=== PATIENT | female | born 1935 | race Caucasian/White ===

== ENCOUNTER → 2017-11-25 | Outpatient (CLI) | payer MEDICARE, OTHER ==
[~2017-11-25] MED LIST: BUME2TAB PO; CANA1TAB8 PO; COMMODE 3-IN-11 MIS; ECASA81 PO; FAMO20TA2 PO; LISI-519 PO; METO1TAB9 PO; OXYC1TAB63 PO; WALKER WHEELS/F1 MIS; ZOCO80TA PO
[2017-11-25 10:17] LABS: AUTOMATED NEUTROPHIL # 4.4 TH/MM3 (1.8-7.7); BASOPHIL # 0.1 TH/MM3 (0-0.2); BASOPHIL % 0.8 % (0.0-2.0); EOSINOPHIL # 0.2 TH/MM3 (0-0.4); EOSINOPHIL % 2.7 % (0.0-4.0); HEMATOCRIT 44.8 % (35.0-46.0); HEMOGLOBIN 14.8 GM/DL (11.6-15.3); LYMPH % 36.5 % (9.0-44.0); LYMPHOCYTE # 3.1 TH/MM3 (1.0-4.8); MEAN CELL VOLUME 89.3 FL (80.0-100.0); MEAN CORPUSCULAR HEMOGLOBIN 29.5 PG (27.0-34.0); MEAN CORPUSCULAR HGB CONC 33.1 % (32.0-36.0); MEAN PLATELET VOLUME 7.4 FL (7.0-11.0); MONO % 7.3 % (0.0-8.0); MONOCYTE # 0.6 TH/MM3 (0-0.9); NEUT % 52.7 % (16.0-70.0); PLATELET COUNT 240 TH/MM3 (150-450); RED BLOOD COUNT 5.02 MIL/MM3 (4.00-5.30); RED CELL DISTRIBUTION WIDTH 13.8 % (11.6-17.2); WHITE BLOOD COUNT 8.4 TH/MM3 (4.0-11.0)
[2017-11-25 10:19] LABS: BILIRUBIN, URINE NEG (NEG); BLOOD, URINE NEG (NEG); GLUCOSE,URINE 1000 mg/dL (NEG); HYALINE CAST, URINE 2 /lpf (RARE); KETONE, URINE NEG (NEG); NITRITE,URINE NEG (NEG); SQUAMOUS EPITHELIAL CELL URINE 1 /hpf (0-5); URINE COLOR LIGHT-YELLOW (YELLW/STRAW); URINE LEUKOCYTE ESTERASE NEG (NEG)
[2017-11-25 10:32] LABS: PROTHROMBIN TIME - PATIENT 10.1 SEC (9.8-11.6)
[2017-11-25 10:52] LABS: BICARBONATE 28.2 MEQ/L (21.0-32.0); CALCIUM 9.3 MG/DL (8.5-10.1); CREATININE 1.14 MG/DL (0.50-1.00)
--- NOTE | 2017-11-25 14:58 | EKG ---
Date Performed: 11/25/2017 Time Performed: 09:07:09 PTAGE: 82 years EKG: Sinus rhythm NORMAL ECG NO PREVIOUS TRACING DOCTOR: Maximino Lua Interpretating Date/Time 11/25/2017 14:53:44
== END ==
LOC: EDUNIT# 08:00 → CPRE 08:18
PROVIDERS: ATTEND Orthopaedic Surgery Orthopaedic Surgery of the Spine
DX: Z01.810 Encounter for preprocedural cardiovascular examination (principal); Z01.812 Encounter for preprocedural laboratory examination; M17.12 Unilateral primary osteoarthritis, left knee
CPT/HCPCS: 36415; 80048; 81001; 85025; 85610; 85730; 93005

== ENCOUNTER 2017-12-06 07:20 | Inpatient (IN) | payer MEDICARE, OTHER ==
[~2017-12-06] VITALS: Ht 157.5 cm; Wt 85.9 kg
[~2017-12-06 07:20] MED LIST changes: -COMMODE 3-IN-11 MIS; -ECASA81 PO; -OXYC1TAB63 PO; -WALKER WHEELS/F1 MIS
[2017-12-06] MEDS ORDERED: ceFAZolin 2 GM PREMIX 50 ML IV SCH (07:45)
[2017-12-06] MEDS ORDERED: METOPROLOL TARTRATE 25 MG TAB PO PRN (07:45)
[2017-12-06] MEDS ORDERED: EXPAREL PERI-ARTICULAR INJECTION (TOTAL VOL. 60 ML) P-ARTICULR SCH ×2 (07:45)
[2017-12-06] MEDS ORDERED: TRANEXAMIC ACID IV SCH (07:45)
[2017-12-06] MEDS ORDERED: SODIUM CHLORIDE 0.9% IV SCH (07:45)
[2017-12-06] MEDS ORDERED: POVIDONE IODINE 5% (ANTISEPSIS KIT) 4 APPLICATIONS EACH NARE PRN (07:45)
[2017-12-06] MEDS ORDERED: CHLORHEXIDINE GLUCONATE 4% SOLN 120 ML BTL TOPICAL SCH (07:45)
[2017-12-06] MEDS ORDERED: CHLORHEXIDINE GLUCONATE 2 % 1 PACK (2 CLOTHS) TOPICAL PRN (07:45)
[2017-12-06] MEDS ORDERED: SODIUM CHLORID 0.9% 500 ML IV PRN (07:45)
[2017-12-06] MEDS ORDERED: VANCOMYCIN 1 GM/200 ML PREMIX IV SCH (08:00)
[2017-12-06] MEDS ORDERED: BUPIVACAINE HCL PF 0.5% 30 ML VIAL NERV BLOCK ONE (08:15)
[2017-12-06] MEDS: LACTATED RINGER'S 1000 ML INJ 1,000 ML IV ONE ×2 (08:15→09:19)
[2017-12-06] MEDS: LACTATED RINGER'S 1000 ML IV PRN ×2 (08:15→09:27)
[2017-12-06] MEDS ORDERED: MIDAZOLAM HCL 2 MG/2 ML VIAL IV ONE (08:15)
[2017-12-06] MEDS ORDERED: MIDAZOLAM HCL 5 MG/ML VIAL (1 ML) IV ONE (08:15)
[2017-12-06] MEDS ORDERED: ROPIVACAINE 0.5% PF INJ 30 ML VIAL NERV BLOCK ONE (08:15)
[2017-12-06 08:20] VITALS: PULSE 65
[2017-12-06] MEDS ORDERED: ECASA81 PO ×3 (08:20→13:05)
[2017-12-06] MEDS ORDERED: ROPIVACAINE 0.5% PF INJ 30 ML VIAL ONE (08:46)
[2017-12-06] MEDS ORDERED: MIDAZOLAM HCL 2 MG/2 ML VIAL ONE (08:46)
[2017-12-06] MEDS ORDERED: KETAMINE HCL 50 MG/5 ML SYRINGE ONE (09:53)
[2017-12-06] MEDS ORDERED: ACETAMINOPHEN 1000 MG/100 ML 100 ML IV ONE (09:53)
[2017-12-06] MEDS ORDERED: BUPIVACAINE/EPINEPHRINE 0.5% PF 30 ML VIAL ONE (10:18)
[2017-12-06] MEDS ORDERED: GENTAMICIN SULFATE 80 MG/2 ML VIAL ONE (10:19)
[2017-12-06] MEDS ORDERED: SODIUM CHLOR 0.9% IV ONE (11:38)
[2017-12-06] MEDS ORDERED: PROPOFOL 200 MG/20 ML AMP IV ONE (12:00)
[2017-12-06] MEDS ORDERED: LACTATED RINGER'S 1000 ML INJ 1,000 ML IV ONE (12:00)
[2017-12-06] MEDS ORDERED: LIDOCAINE HCL 1% PF 5 ML SYRINGE OTHER ONE (12:00)
[2017-12-06] MEDS ORDERED: DEXAMETHASONE SOD PHOS 4 MG/ML VIAL IV ONE (12:00)
[2017-12-06] MEDS ORDERED: LABETALOL HCL 100 MG/20 ML VIAL IV ONE (12:00)
[2017-12-06] MEDS ORDERED: ePHEDrine/NS 25 MG/5 ML SYRINGE IV ONE (12:00)
[2017-12-06] MEDS ORDERED: ONDANSETRON HCL 4 MG/2 ML VIAL IV ONE (12:00)
[2017-12-06] MEDS ORDERED: ALUMINUM/MAGNESIUM/SIMETH 30 ML CUP PO PRN (12:45)
[2017-12-06] MEDS ORDERED: TEMAZEPAM 15 MG CAP PO PRN (12:45)
[2017-12-06] MEDS ORDERED: ONDANSETRON HCL 4 MG/2 ML VIAL IVP PRN (12:45)
[2017-12-06] MEDS ORDERED: diphenhydrAMINE HCL 25 MG CAP PO PRN (12:45)
[2017-12-06] MEDS ORDERED: MORPHINE SULFATE 8 MG/ML INJ IM PRN (12:45)
[2017-12-06] MEDS ORDERED: Post-op Orders (for Pharmacy) XX ONE (12:45)
[2017-12-06] MEDS ORDERED: NALOXONE HCL 0.4 MG/ML AMP IV PUSH PRN (12:45)
--- NOTE | 2017-12-06 12:46 | PD.OP ---
cc: Scott Morfin. Operative Report Date of Surgery: Dec 06, 2017 Preoperative Diagnosis: Osteoarthritis left knee Postoperative Diagnosis: Same. Macerated torn lateral meniscus. Fatigue fracture medial tibial plateau Procedure: Left total knee replacement arthroplasty Anesthesia: General with regional for pain control Surgeon: Scott Morfin Hands Parter(s): HAMLET Gomez Operation and Findings: EBL: 50 cc INDICATION: This patient presents with long-standing arthritis of the knee. The patient had a fall sustaining an injury to the left knee. Her symptoms escalated significantly. An MRI scan is consistent with a torn lateral meniscus and arthritis predominantly of the medial compartment. Attachment record documents conservative measures. The patient now presents for surgical treatment. NOTE: Yazmin Gomez PA-C was present for the entire surgical procedure as my market research assistant. In my medical opinion her skill and care was necessary for proper management of this patient. TOURNIQUET TIME: 60 minutes COMPANY: [employer] FEMUR: Size 5, posterior stabilized, left TIBIA: Size 5, fixed-bearing PATELLA: 32 mm POLYETHYLENE INSERT: Posterior stabilized, 10 mm PROCEDURE: This patient was brought the operating room and anesthetized in the supine position. The patient was positioned supine on the table. The tourniquet was placed about the thigh, and the leg was scrubbed with alcohol followed by Hibiclens followed by ChloraPrep and draped sterilely. A timeout was done, and antibiotics were given. After exsanguination the tourniquet was inflated to 250 mmHg. An anterior incision was made and a median parapatellar arthrotomy was performed. The patella was released laterally and subluxed allowing freehand cut of the patella which was then sized. A metal cap was placed over the exposed patellar surface for protection. A pilot steam yacht hole was placed in the distal femur allowing a 6 valgus cut removing 10 mm from the distal femur. Anterior posterior and chamfer cuts were made. The posterior stabilize osteotomy was made. The attention was directed to the tibia. Retractors were positioned. There was a significantly torn lateral meniscus. There appeared to be a small fatigue fracture along the medial tibial plateau which had partially healed. The external alignment guide was used allowing the lateral tibia to be used as referencing guide and cut utilizing an oscillating saw taking care to avoid any injury to the surrounding soft tissues. This was sized properly. Trial reduction showed that the insert fit nicely. The patient had range of motion extension 0 flexion 125 . A medial release was not necessary. The bony surfaces prepared. On the back table 2 packets of methylmethacrylate were mixed. The components were cemented. Excess cement was removed. The tourniquet let down and hemostasis was controlled. The final plastic insert was inserted. Range of motion was the same as previously noted. A drain was brought through a separate stab incision. The arthrotomy was repaired with interrupted #1 Vicryl suture, subcutaneous tissue 2-0 Vicryl suture and skin with metallic yvon A sterile dressing was applied. Sponge counts, needle counts and instrument counts were all correct. The patient tolerated procedure well and was taken to recovery in satisfactory condition. FINDINGS: There was evidence of significant arthritis involving the medial compartment which was also noted to have an insufficiency type fracture involving the medial tibial plateau just medial to the weightbearing portion. There was any severely macerated and torn lateral meniscus contributing to joint mechanical symptomatology. The final solution appeared to be excellent. There was no complication that was appreciated Scott Morfin MD Dec 06, 2017 12:46
[2017-12-06] MEDS ORDERED: OXYC1TAB63 PO (13:05)
--- NOTE | 2017-12-06 13:08 | HHI.FF ---
Face to Face Verification Diagnosis: (1) Primary localized osteoarthritis of left knee Physical Therapy Gait training Knee: Total knee, Protocol: Left, Full weight bearing Canvas Knee Splint: Other (At night for 4 weeks) Nursing RN: 3 days/week x 2 weeks Nursing: Other Dressing Changes: Do not change dressing I have seen patient Vanda Sultana on 12/06/17. My clinical findings support the need for the requested home health care services because: Limited ability to care for self High risk of falls I certify that my clinical findings support that this patient is homebound because: Unsteady gait/balance Scott Morfin MD Dec 06, 2017 13:08
[2017-12-06] MEDS ORDERED: MORPHINE SULFATE 4 MG/ML INJ ONE (13:22)
--- NOTE | 2017-12-06 13:40 | RADRPT ---
EXAM DATE: 12/06/2017 1:35 PM EDT AGE/SEX: 82 years / Female INDICATIONS: Post op left total knee. CLINICAL DATA: This is the patient's initial encounter. Patient reports that signs and symptoms have been present for 1 day and indicates a pain score of Nonresponsive. MEDICAL/SURGICAL HISTORY: Non-responsive. Non-responsive. COMPARISON: No prior exams available for comparison. FINDINGS: Post surgical changes are noted following left knee replacement. Prosthetic components are well seate d and in satisfactory alignment. There are no acute bony abnormalities. CONCLUSION: Satisfactory postoperative appearance of the left knee following replacement. Electronically signed by: Husam Estrada MD 12/06/2017 1:38 PM EDT
[2017-12-06] MEDS ORDERED: *morphine SULFATE 4 MG/ML PERIprocedure ONLY ONE ×3 (13:53→14:57)
[2017-12-06] MEDS ORDERED: ASPIRIN EC 81 MG TABEC PO ONE (14:30)
[2017-12-06] MEDS: LACTATED RINGER'S 1000 ML INJ 1,000 ML IV SCH (14:33)
[2017-12-06] MEDS ORDERED: DO NOT ADM ANY ANTICOAGULANT DRUGS PRN (14:45)
[2017-12-06 16:00] VITALS: BP 145/70; PULSE 69; RESP 19; TEMP 98.3; O2SAT 100
[2017-12-06 16:58] VITALS: O2SAT 97
[2017-12-06] MEDS: oxyCODONE/ACETAMINOPHEN 5 MG/325 MG TAB PO PRN ×2 (17:22→22:04)
[2017-12-06 19:30] VITALS: BP 171/73; PULSE 77; RESP 18; TEMP 97.8; O2SAT 97
[2017-12-06 20:20] VITALS: O2SAT 97
[2017-12-06] MEDS ORDERED: CANAGLIFLOZIN METFORMIN PO SCH (21:00)
[2017-12-06] MEDS ORDERED: INVOKAMET PO SCH (21:00)
[2017-12-06] MEDS: FAMOTIDINE 20 MG TAB PO SCH (22:00)
[2017-12-06] MEDS: ATORVASTATIN 40 MG TAB PO SCH (22:02)
[2017-12-06] MEDS: LISINOPRIL 5 MG TAB PO SCH (22:02)
[2017-12-06] MEDS: BUMETANIDE 1 MG TAB PO SCH (22:02)
[2017-12-06] MEDS: METOPROLOL SUCCINATE 50 MG EXTENDED RELEASE TAB PO SCH (22:03)
[2017-12-06] MEDS: ASPIRIN EC 81 MG TABEC PO SCH (22:03)
[2017-12-06 23:50] VITALS: BP 150/65; PULSE 77; RESP 17; TEMP 98; O2SAT 96
[2017-12-07] MEDS: LACTATED RINGER'S 1000 ML INJ 1,000 ML IV SCH ×2 (01:11→13:41)
[2017-12-07 04:25] VITALS: BP 115/56; PULSE 59; RESP 16; TEMP 98; O2SAT 98
[2017-12-07 05:52] LABS: HEMATOCRIT 35.6 % (35.0-46.0); HEMOGLOBIN 12.1 GM/DL (11.6-15.3)
[2017-12-07] MEDS: oxyCODONE/ACETAMINOPHEN 5 MG/325 MG TAB PO PRN ×3 (07:53→20:56)
[2017-12-07] MEDS: ASPIRIN EC 81 MG TABEC PO SCH ×2 (07:53→20:56)
[2017-12-07 08:00] VITALS: BP 132/62; PULSE 62; RESP 18; TEMP 98; O2SAT 100
[2017-12-07 10:30] VITALS: O2SAT 95
[2017-12-07 12:00] VITALS: BP 99/54; PULSE 66; RESP 19; TEMP 98.1; O2SAT 95
--- NOTE | 2017-12-07 12:56 | PD.ORT.PN ---
Subjective Subjective Remarks Doing well with moderate pain left knee. NO new leg pain. Block wore off and leg aches to lower thigh. Appetite improving. urinating. No concerns otherwise. Is considering discharge to rehab as she does not have help at home. Objective Vitals Vital Signs Date Time Temp Pulse Resp B/P (MAP) Pulse Ox O2 Delivery O2 Flow Rate FiO2 12/07/17 10:24 18 12/07/17 08:00 98.0 62 18 132/62 (85) 100 12/07/17 04:25 98.0 59 16 115/56 (75) 98 12/06/17 23:50 98.0 77 17 150/65 (93) 96 12/06/17 20:20 97 Nasal Cannula 2.00 12/06/17 19:30 97.8 77 18 171/73 (105) 97 12/06/17 16:58 97 Nasal Cannula 2.00 12/06/17 16:00 98.3 69 19 145/70 (95) 100 12/06/17 15:05 98.0 75 15 149/70 (96) 99 Nasal Cannula 3 12/06/17 14:45 77 15 150/70 (96) 99 Nasal Cannula 3 12/06/17 14:15 71 15 160/77 (104) 99 Nasal Cannula 3 12/06/17 14:00 75 15 168/79 (108) 99 Nasal Cannula 3 12/06/17 13:45 72 17 164/71 (102) 99 Nasal Cannula 3 12/06/17 13:30 74 15 170/83 (112) 99 Nasal Cannula 3 12/06/17 13:15 75 14 168/79 (108) 100 Nasal Cannula 3 12/06/17 13:07 96.0 77 14 180/88 (118) 99 Nasal Cannula 3 I/O 12/06/17 12/06/17 12/06/17 12/07/17 12/07/17 12/07/17 07:00 15:00 23:00 07:00 15:00 23:00 Intake Total 1700 ml 415 ml 1382 ml Output Total 250 ml 0 ml Balance 1450 ml 415 ml 1382 ml Intake Oral 240 ml 480 ml IV Total 1700 ml 175 ml 902 ml Output Urine Total 200 ml 0 ml Estimated Blood Loss 50 ml # Voids 2 5 # Bowel Movements 0 Result Diagram: 12/07/17 0415 Objective Remarks Sitting up in chair Eating breakfast Family member at bedside Left LE Knee dressing c/d/i, mild SS drainage, mild swelling and warmth, no erythema +motor at distal, +sens, +nvi 1+ pedal edema, Neg homans Assessment & Plan Ortho Post Op Day #: 1 Problem List: Assessment and Plan pod#1 s/p L TKA Pain moderately controlled. Appears ortho stable. PT - WBAT LLE. TKA procotol CKS when in bed FERNANDO hose both legs. IS encouraged. Ice left knee bid. PO pain meds as needed. ASA 81mg bid Hold dressing changes unless saturated. D/C planning, likely rehab tuesday. Yumiko Hernandez Dec 07, 2017 12:56
[2017-12-07] MEDS ORDERED: COMMODE 3-IN-11 MIS (12:57)
[2017-12-07] MEDS ORDERED: WALKER WHEELS/F1 MIS (12:57)
[2017-12-07 17:32] VITALS: O2SAT 95
[2017-12-07 20:00] VITALS: BP 132/61; PULSE 76; RESP 18; TEMP 98.8; O2SAT 95
[2017-12-07] MEDS: BUMETANIDE 1 MG TAB PO SCH (20:53)
[2017-12-07] MEDS: FAMOTIDINE 20 MG TAB PO SCH (20:55)
[2017-12-07] MEDS: LISINOPRIL 5 MG TAB PO SCH (20:55)
[2017-12-07] MEDS: METOPROLOL SUCCINATE 50 MG EXTENDED RELEASE TAB PO SCH (20:55)
[2017-12-07] MEDS: ATORVASTATIN 40 MG TAB PO SCH (20:56)
[2017-12-08 00:01] VITALS: BP 143/66; PULSE 73; RESP 18; TEMP 98.5; O2SAT 96
[2017-12-08] MEDS: oxyCODONE/ACETAMINOPHEN 5 MG/325 MG TAB PO PRN ×2 (00:40→04:56)
[2017-12-08] MEDS: LACTATED RINGER'S 1000 ML INJ 1,000 ML IV SCH ×2 (02:11→09:53)
--- NOTE | 2017-12-08 06:18 | PD.ORT.PN ---
Subjective Subjective Remarks Pain fairly well controlled but still painful Objective Vitals Vital Signs Date Time Temp Pulse Resp B/P (MAP) Pulse Ox O2 Delivery O2 Flow Rate FiO2 12/08/17 00:01 98.5 73 18 143/66 (91) 96 12/07/17 20:00 98.8 76 18 132/61 (84) 95 12/07/17 17:32 95 21 12/07/17 12:00 98.1 66 19 99/54 (69) 95 12/07/17 10:30 95 21 12/07/17 10:24 18 12/07/17 08:00 98.0 62 18 132/62 (85) 100 I/O 12/07/17 12/07/17 12/07/17 12/08/17 12/08/17 12/08/17 07:00 15:00 23:00 07:00 15:00 23:00 Intake Total 1382 ml 1020 ml 700 ml Balance 1382 ml 1020 ml 700 ml Intake Oral 480 ml 1020 ml 600 ml IV Total 902 ml 100 ml # Voids 5 2 4 # Bowel Movements 0 Result Diagram: 12/07/17 0415 Objective Remarks Sitting in bed Left LE Knee dressing c/d/i, mild SS drainage, mild swelling and warmth, no erythema +motor at distal, +sens, +nvi 1+ pedal edema, Neg homans Assessment & Plan Assessment and Plan pod#2 s/p L TKA Pain moderately controlled. Appears ortho stable. PT - WBAT LLE. TKA procotol CKS when in bed FERNANDO hose both legs. IS encouraged. Ice left knee bid. PO pain meds as needed, will increase to Percocet 7.5 ASA 81mg bid Hold dressing changes unless saturated. D/C planning, likely rehab tuesday. Scott Morfin MD Dec 08, 2017 06:18
[2017-12-08] MEDS ORDERED: oxyCODONE/ACETAMINOPHEN 7.5 MG/325 MG TAB PO PRN (06:30)
[2017-12-08 08:00] VITALS: BP 130/61; PULSE 72; RESP 16; TEMP 98; O2SAT 93
[2017-12-08] MEDS: ASPIRIN EC 81 MG TABEC PO SCH ×2 (08:12→20:48)
[2017-12-08] MEDS: oxyCODONE/ACETAMINOPHEN 7.5 MG/325 MG TAB PO PRN ×3 (08:14→16:40)
[2017-12-08 12:00] VITALS: BP 119/58; PULSE 71; RESP 16; TEMP 98; O2SAT 94
[2017-12-08 20:00] VITALS: BP 120/65; PULSE 81; RESP 15; TEMP 99.2; O2SAT 92
[2017-12-08] MEDS: POLYETHYLENE GLYCOL 17 GM PKG PO SCH (20:45)
[2017-12-08] MEDS: MAGNESIUM HYDROXIDE SUSP 30 ML CUP PO SCH ×3 (20:45→21:24)
[2017-12-08] MEDS: FAMOTIDINE 20 MG TAB PO SCH (20:46)
[2017-12-08] MEDS: ATORVASTATIN 40 MG TAB PO SCH (20:47)
[2017-12-08] MEDS: LISINOPRIL 5 MG TAB PO SCH ×2 (20:47→21:21)
[2017-12-08] MEDS: BISACODYL EC 5 MG TABEC PO SCH (20:47)
[2017-12-08] MEDS: METOPROLOL SUCCINATE 50 MG EXTENDED RELEASE TAB PO SCH (20:48)
[2017-12-08] MEDS: BUMETANIDE 1 MG TAB PO SCH (20:48)
--- NOTE | 2017-12-08 21:41 | HHI.DCPOC ---
Discharge Care Plan Diagnosis: (1) Primary localized osteoarthritis of left knee Your Health Problems Are: Difficulty with ADL Incision/Drains Swelling Goals to Promote Your Health * To prevent worsening of your condition and complications * To maintain your health at the optimal level Directions to Meet Your Goals Take your medications as prescribed Follow your dietary instruction Follow activity as directed Keep your appointments as scheduled Take your immunizations and boosters as scheduled If your symptoms worsen call your PCP, if no PCP go to Urgent Care Center or Emergency Room Smoking is Dangerous to Your Health. Avoid second hand smoke Call the 24-hour hour crisis hotline for domestic abuse at Yumiko Hernandez Dec 08, 2017 21:41
--- NOTE | 2017-12-08 21:49 | HHI.DS ---
Discharge Summary Admission Date Dec 06, 2017 at 07:20 Discharge Date: Dec 09, 2017 Admitting Diagnosis see below Diagnosis: (1) Primary localized osteoarthritis of left knee Diagnosis: Principal ICD Codes: M17.12 - Unilateral primary osteoarthritis, left knee Procedures Left total knee arthroplasty Brief History This is a 82 year old female patient with a 4-5 year history of knee pain. She sustained an injury to her knee in 2012 and underwent arthroscopic surgery. She recovered well and her pain improved but her relief was temporary. Xrays were taken and she was told she had advancing arthritis. In December 2016 she was leaving [employer] when she slipped and fell injuring her wrists and knees. She was given a cortisone injection in the left knee and physical therapy was prescribed. Despite her compliance with therapy her left knee pain continued to increase. She was given Tramadol with little relief. It was eventually recommended that she undergo left total knee arthroplasty. She agreed and now presents for the above. CBC/BMP: 12/07/17 0415 Significant Findings Laboratory Tests Test 12/07/17 04:15 PE at Discharge Sitting in bed Left LE Knee dressing c/d/i, mild SS drainage, mild swelling and warmth, no erythema +motor at distal, +sens, +nvi 1+ pedal edema, Neg homans Hospital Course Surgical treatment was performed on the day of admission without complication. She recovered well in PACU and was transferred to the orthopaedic floor. Pain was controlled with IV and oral medications. She was compliant with physical therapy and all restrictions and precautions including use of her knee splint at night. After 3 days she was found to be stable and discharged to a shelter facility. She was educated to continue to ice the operative limb twice daily, to pursue a high fiber diet for 5-7 days, and to continue therapy as directed. She was given prescriptions of ASA 81mg twice daily and Percocet 7.5/ 325mg as needed for pain. Pt Condition on Discharge: Stable Discharge Disposition: Discharge to SNF Discharge Instructions Diet Instructions: Diabetic Diet, High Fiber Diet Activities You Can Perform: Weight Bearing as [place] Activities to Avoid: Strenuous Activity Additional Activity Instruc.: TKAprotocol New Medications: Commode 3-in-1 (Commode 3-in-1) 1 Mis Mis EA .XX DIRECTED, #1 0 Refills Walker with Front Wheels (Walker with Front Wheels) 1 Mis Mis EA .XX DIRECTED, #[address] (Aspirin DR) 81 Mg Tabdr 81 MG PO BID for Prevent Blood Clot, #60 TAB Oxycodone HCl/Acetaminophen (Oxycodone-Acetaminophen 5-325) 5 Mg-325 Mg Tablet 1 TAB PO Q4H PRN for pain, #42 TAB Continued Medications: Bumetanide (Bumetanide) 2 Mg Tab 2 MG PO HS, TAB 0 Refills Canagliflozin-Metformin ER 24 HR (Invokamet Xr) 150-1,000 Mg Tab 2 TAB PO HS for Blood Sugar Management, TAB 0 Refills Famotidine (Famotidine) 20 Mg Tab 1.5 TAB PO HS, #60 TAB 0 Refills Lisinopril (Lisinopril) 5 Mg Tab 5 MG PO HS for Blood Pressure Management, #30 TAB 0 Refills Metoprolol Succinate ER 24 HR (Metoprolol Succinate ER 24 HR) 50 Mg Tab 50 MG PO HS, #30 TAB 0 Refills Simvastatin (Zocor) 80 Mg Tab 80 MG PO HS for Cholesterol Management, #30 TAB 0 Refills Discontinued Medications: Aspirin DR (Aspirin DR) 81 Mg Tabdr 81 MG PO DAILY, TAB 0 Refills Yumiko Hernandez Dec 08, 2017 21:49
[2017-12-09] VITALS: BP 132/60; PULSE 83; RESP 15; TEMP 99; O2SAT 96
[2017-12-09] MEDS: oxyCODONE/ACETAMINOPHEN 7.5 MG/325 MG TAB PO PRN ×5 (03:02→20:15)
[2017-12-09] MEDS: LACTATED RINGER'S 1000 ML INJ 1,000 ML IV SCH ×2 (03:11→07:38)
--- NOTE | 2017-12-09 07:28 | PD.ORT.PN ---
Subjective Subjective Remarks She continues to do improve. No new leg pain. Moderate knee pain but no other complaints. Appetite good. Urinating. Ready for discharge but apparently there is a hold up with insurance versus liability coverage. Objective Vitals Vital Signs Date Time Temp Pulse Resp B/P (MAP) Pulse Ox O2 Delivery O2 Flow Rate FiO2 12/09/17 00:00 99.0 83 15 132/60 (84) 96 12/08/17 20:00 99.2 81 15 120/65 (83) 92 12/08/17 12:00 98.0 71 16 119/58 (78) 94 12/08/17 08:00 98.0 72 16 130/61 (84) 93 I/O 12/08/17 12/08/17 12/08/17 12/09/17 12/09/17 12/09/17 07:00 15:00 23:00 07:00 15:00 23:00 Intake Total 700 ml 360 ml Balance 700 ml 360 ml Intake Oral 600 ml 360 ml IV Total 100 ml # Voids 4 4 Result Diagram: 12/07/17 0415 Procedures Left total knee arthroplasty Objective Remarks Sitting in bed Left LE Knee dressing c/d/i, no new drainage, mild swelling and warmth, no erythema +motor at distal, +sens, +nvi 1+ pedal edema, Neg homans Assessment & Plan Ortho Post Op Day #: 3 Problem List: (1) Primary localized osteoarthritis of left knee ICD Codes: M17.12 - Unilateral primary osteoarthritis, left knee Assessment and Plan pod#3 s/p L TKA Pain moderately controlled. Appears ortho stable. PT - WBAT LLE. TKA procotol CKS when in bed FERNANDO hose both legs. IS encouraged. Ice left knee bid. PO pain meds as needed. Percocet 7.5 ASA 81mg bid D/C to SNF today as long as insurance can can authorized. F/U in 2 weeks as scheduled. Yumiko Hernandez Dec 09, 2017 07:28
[2017-12-09] MEDS: ASPIRIN EC 81 MG TABEC PO SCH ×2 (07:35→20:24)
[2017-12-09 12:15] VITALS: BP 136/65; PULSE 70; RESP 16; TEMP 97; O2SAT 98
[2017-12-09] MEDS ORDERED: BISACODYL 10 MG SUPP RECTAL ONE (13:15)
[2017-12-09 18:09] VITALS: BP 179/74; PULSE 88; RESP 17; TEMP 97.8; O2SAT 95
[2017-12-09 20:00] VITALS: BP 134/59; PULSE 84; RESP 17; TEMP 98.7; O2SAT 94
[2017-12-09] MEDS: FAMOTIDINE 20 MG TAB PO SCH (20:23)
[2017-12-09] MEDS: BUMETANIDE 1 MG TAB PO SCH (20:23)
[2017-12-09] MEDS: LISINOPRIL 5 MG TAB PO SCH (20:24)
[2017-12-09] MEDS: BISACODYL EC 5 MG TABEC PO SCH (20:25)
[2017-12-09] MEDS: ATORVASTATIN 40 MG TAB PO SCH (20:25)
[2017-12-09] MEDS: MAGNESIUM HYDROXIDE SUSP 30 ML CUP PO SCH (20:28)
[2017-12-09] MEDS: POLYETHYLENE GLYCOL 17 GM PKG PO SCH (20:29)
[2017-12-09] MEDS: METOPROLOL SUCCINATE 50 MG EXTENDED RELEASE TAB PO SCH (20:32)
[2017-12-10] VITALS: BP 141/66; PULSE 80; RESP 16; TEMP 98.1; O2SAT 95
[2017-12-10] MEDS: oxyCODONE/ACETAMINOPHEN 7.5 MG/325 MG TAB PO PRN ×4 (00:52→15:47)
[2017-12-10] MEDS: LACTATED RINGER'S 1000 ML INJ 1,000 ML IV SCH (04:11)
[2017-12-10 08:00] VITALS: BP 143/64; PULSE 95; RESP 16; TEMP 98.3; O2SAT 92
--- NOTE | 2017-12-10 08:48 | PD.ORT.PN ---
Subjective Post Op Day #: 4 Subjective Remarks pain tolerable Objective Vitals Vital Signs Date Time Temp Pulse Resp B/P (MAP) Pulse Ox O2 Delivery O2 Flow Rate FiO2 12/10/17 00:00 98.1 80 16 141/66 (91) 95 12/09/17 20:00 98.7 84 17 134/59 (84) 94 12/09/17 18:09 97.8 88 17 179/74 (109) 95 12/09/17 12:15 97.0 70 16 136/65 (88) 98 I/O 12/09/17 12/09/17 12/09/17 12/10/17 12/10/17 12/10/17 07:00 15:00 23:00 07:00 15:00 23:00 Intake Total 360 ml 840 ml 840 ml Balance 360 ml 840 ml 840 ml Intake Oral 360 ml 840 ml 840 ml # Voids 4 2 2 # Bowel Movements 2 1 Result Diagram: 12/07/17 0415 Procedures Left total knee arthroplasty Objective Remarks Sitting in bed, eating, nad Left LE Knee dressing c/d/i, no new drainage, mild swelling and warmth, no erythema +motor at distal, +sens, +nvi 1+ pedal edema, Neg homans Assessment & Plan Ortho Post Op Day #: 4 Problem List: (1) Primary localized osteoarthritis of left knee ICD Codes: M17.12 - Unilateral primary osteoarthritis, left knee Assessment and Plan pod#4 s/p L TKA Pain moderately controlled. Appears ortho stable. PT - WBAT LLE. TKA procotol CKS when in bed FERNANDO hose both legs. IS encouraged. Ice left knee bid. PO pain meds as needed. Percocet 7.5 ASA 81mg bid D/C to SNF or home with [facility] and pt - cleared when authorized by insurance F/U in 2 weeks as scheduled. Marquis Brown Dec 10, 2017 08:48
[2017-12-10] MEDS: ASPIRIN EC 81 MG TABEC PO SCH (10:33)
[2017-12-10] MEDS: MAGNESIUM HYDROXIDE SUSP 30 ML CUP PO SCH (10:33)
[2017-12-10 12:00] VITALS: BP 160/62; PULSE 86; RESP 17; TEMP 98.3; O2SAT 95
== END 2017-12-10 16:21 | disposition home health service (06) | DRG 470 ==
LOC: HSDI 07:20 → N06B 15:16
PROVIDERS: ADMIT Orthopaedic Surgery Orthopaedic Surgery of the Spine; ATTEND Orthopaedic Surgery Orthopaedic Surgery of the Spine
PROC: 0SRD0J9 Replacement of Left Knee Joint with Synthetic Substitute, Cemented, Open Approach (ICD-10-PCS; principal; 2017-12-06 10:26)
DX: M17.12 Unilateral primary osteoarthritis, left knee (principal); I73.9 Peripheral vascular disease, unspecified; I12.9 Hypertensive chronic kidney disease with stage 1 through stage 4 chronic kidney disease, or unspecified chronic kidney disease; E78.5 Hyperlipidemia, unspecified; S83.282A Other tear of lateral meniscus, current injury, left knee, initial encounter; I25.10 Atherosclerotic heart disease of native coronary artery without angina pectoris; I25.2 Old myocardial infarction; N18.9 Chronic kidney disease, unspecified; E66.9 Obesity, unspecified; F32.9 Major depressive disorder, single episode, unspecified; W01.0XXA Fall on same level from slipping, tripping and stumbling without subsequent striking against object, initial encounter; Z68.34 Body mass index [BMI] 34.0-34.9, adult; Z87.891 Personal history of nicotine dependence; Z88.1 Allergy status to other antibiotic agents; Z91.040 Latex allergy status; Z95.5 Presence of coronary angioplasty implant and graft
CPT/HCPCS: 73560; 85014; 85018; 86850; 86900; 86901; 86920; 94150; C1776; J0131; J0690; J1100; J1580; J2250; J2270; J2405; J2795; J3010; J3370; J7050; J7120; L1830